=== PATIENT | male | born 1980 | race Caucasian/White ===

== ENCOUNTER 2023-05-10 13:50 | Emergency (ER) | payer OTHER, SELFPAY ==
[2023-05-10] VITALS (9 sets, daily range): BP systolic 140–158; BP diastolic 98–108; PULSE 51–81; RESP 10–24; TEMP 36.7–37; O2SAT 98–100
--- NOTE | ~2023-05-10 | CT_ITS ---
EXAMINATION: CT abdomen pelvis wo con DATE: 05/10/2023 15:21 INDICATION: Epigastric pain TECHNIQUE: Computed tomography (CT) of the abdomen and pelvis was performed without intravenous contr ast. The dose-length product (DLP) was 623.28 mGy-cm. Automated exposure control and iterative recons truction technique were employed. COMPARISON: None FINDINGS: The lung bases are clear. The heart size is normal. The liver, spleen, pancreas, gallbladde r, and adrenal glands are normal. The kidneys are unremarkable. No pathologically enlarged abdominal or pelvic lymph nodes are identified. No free intraperitoneal gas or evidence of bowel obstruction. T he appendix is normal. Colonic diverticulosis is present without evidence of diverticulitis. There is a fat-containing umbilical hernia. There is mild lumbar spondylosis. IMPRESSION: 1. No CT correlate for the patient's symptoms. Reviewed, dictated and finalized at location L.
--- NOTE | ~2023-05-10 | XR_ITS ---
EXAMINATION: XR abdomen obstructive series DATE: 05/10/2023 14:24 INDICATION: Abdominal pain. TECHNIQUE: Upright and supine views of the abdomen on 4 radiographs were obtained. COMPARISON: None. FINDINGS: There are no dilated loops of bowel. There is a small volume of stool in the colon. No free intraperitoneal gas. A necklace is noted. IMPRESSION: 1. Normal bowel gas pattern. Reviewed, dictated and finalized at location A.
[2023-05-10 14:12] LABS: Basophils Absolute Auto 0.05 K/mm3 (0.00-0.10); Basophils Percent Auto 0.6 % (0.0-1.0); Eosinophils Absolute Auto 0.02 K/mm3 (0.02-0.50); Eosinophils Percent Auto 0.2 % (1.0-6.0); Hemoglobin 15.6 g/dL (14.0-18.0); Immature Granulocyte Absolute 0.03 K/mm3 (0.00-0.00); Immature Granulocyte Percent A 0.3 % (0.0-0.0); Lymphocytes Absolute Auto 1.47 K/mm3 (1.10-4.50); Lymphocytes Percent Auto 16.5 % (18.0-42.0); Mean Corpuscular HGB Conc 33.9 g/dL (32.0-36.0); Mean Corpuscular Hemoglobin 32.5 pg (27.0-31.0); Mean Corpuscular Volume 95.8 fL (78.0-102.0); Mean Platelet Volume 9.2 fl (8.7-11.0); Monocytes Absolute Auto 0.82 K/mm3 (0.10-0.90); Monocytes Percent Auto 9.2 % (2.0-11.0); Neutrophils Absolute Auto 6.5 K/mm3 (1.7-7.2); Neutrophils Percent Auto 73.2 % (50.0-70.0); Platelet Count Result 235 K/mm3 (150-420); Red Cell Distribution Width 11.9 % (11.6-14.4); White Blood Count 8.9 K/mm3 (4.8-10.8)
--- NOTE | 2023-05-10 14:16 | ED.FALL ---
HPI - Fall General Chief Complaint: Abdominal Pain Stated Complaint: chest discomfort/acid reflux Time Seen by Provider: 05/10/23 14:00 Source: patient Mode of arrival: ambulatory Limitations: no limitations History of Present Illness HPI Narrative: patient is a 42-year-old male with abdominal pain. He has increased his beer and alcohol intake over the past couple days with labor day weekend. He has had pancreatitis in the past. His pain is upper abdomen. Pain is epigastric. It does not radiate. It is sharp with 6/10 pain. It has no associated symptoms. Nothing makes it better or worse. Related Data Allergies Allergy/AdvReac Type Severity Reaction Status Date / Time No Known Allergies Allergy Mild Verified 05/10/23 13:55 Review of Systems Review of Systems: All systems reviewed & are unremarkable except as noted in HPI and below Constitutional: Constitutional: Reports no additional constitutional complaints Eyes: Eyes: Reports no additional eye complaints ENT: Reports system reviewed and no additional complaints, except as documented Cardiovascular: Cardiovascular: Reports no additional cardiovascular complaints Respiratory: Respiratory: Reports no additional respiratory complaints Gastrointestinal: Gastrointestinal: Reports no additional gastrointestinal complaints Genitourinary: Genitourinary: Reports no additional male genitourinary complaints Musculoskeletal: Musculoskeletal: Reports no additional musculoskeletal complaints Integumentary/Breasts: Skin/Breast: Reports system reviewed and no additional complaints, except as docu Neurologic: Reports system reviewed and no additional complaints, except as documented Psychiatric: Psychiatric: Reports no additional psychiatric complaints Endocrine: Endocrine: Reports no additional endocrine complaints Hematologic/Lymphatic: Hematologic/Lymphatic: Reports no additional hematologic/lymphatic complaints Allergic/Immunologic: Allergic/Immunologic: Reports no additional allergic/immunologic complaints Exam Const: General: healthy appearing, no acute distress and alert Nutritional Appearance: well nourished Orientation/consciousness: patient oriented x3 Limitations: no limitations Neck: Neck: normal visual inspection Chest: Chest palpation & inspection: normal inspection of the chest Resp: Effort & Inspection: normal respiratory effort Auscultation: clear to auscultation bilaterally Cardio: Rate: regular rate Rhythm: regular rhythm Heart sounds: no murmurs GI: Inspection: non-distended GI Palp: Yes Soft to palpation, Yes Tenderness to palpation present (GI) ( Epigastric), No Guarding due to palpation present (GI), No Rigid due to palpation and No Hernia present Auscultation: normal bowel sounds : General: Yes bladder normal to palpation Back/Spine/Pelvis: Back: no CVA tenderness Skin: General skin exam: normal color Rashes: no rashes Wounds: no wounds Neuro: General: patient oriented x3 Cranial nerves: Yes Nystagmus not present Speech: normal speech Gait exam (Neuro): Normal gait present Extrem: General: normal to inspection Psych: Mental Status: mental status grossly normal Affect: normal affect Attitude: cooperative Course Vital Signs Vital signs: Vital Signs Oxygen Delivery Room Air 05/10/23 13:50 Temperature 37.0 C 05/10/23 13:51 Pulse Rate 51 L 05/10/23 14:47 Respiratory Rate 10 L 05/10/23 14:47 Blood Pressure 154/100 H 05/10/23 14:47 Pulse Oximetry 100 05/10/23 14:47 Oxygen Delivery Room Air 05/10/23 13:51 MDM - Fall Lab Data Attestation: I reviewed the patient's lab results. 05/10/23 14:06 05/10/23 14:06 Labs: Lab Results 05/10/23 Range/Units 14:06 WBC 8.9 (4.8-10.8) K/mm3 RBC 4.80 (4.70-6.10) M/mm3 Hgb 15.6 (14.0-18.0) g/dL Hct 46.0 (40.0-54.0) % MCV 95.8 (78.0-102.0) fL MCH 32.5 H (27.0-31.0) pg MCHC 33.9 (32.0-36.0) g
--- NOTE | 2023-05-10 14:21 | ECG_ITS ---
Measurements Intervals [place] Rate: 56 P: 56 DC: 151 QRS: 55 QRSD: 101 T: 67 QT: 420 QTc: 406 Interpretive Statements SINUS BRADYCARDIA BORDERLINE ECG NO PREVIOUS ECG AVAILABLE FOR COMPARISON Electronically Signed On 05-10-2023 15:14:23 CDT by Harlan Dia D.O.
[2023-05-10 14:26] LABS: Partial Thromboplastin Time 29.5 SEC (23.90-30.70); Prothrombin Time 10.7 Seconds (9.50-12.10)
[2023-05-10] MEDS: SODIUM CHLORIDE 0.9% IV 1,000 ML 999 ML IV CONT (14:28)
[2023-05-10 14:39] LABS: Alanine Aminotransferase 42 U/L (16-63); Albumin Level 3.9 g/dL (3.4-5.0); Alkaline Phosphatase 68 U/L (46-116); Anion Gap 9 mmol/L (8-16); Aspartate Amino Transferase 43 U/L (15-37); Blood Urea Nitrogen 8 mg/dL (7-18); Calcium 9.9 mg/dL (8.5-10.1); Carbon Dioxide 27 mmol/L (21-32); Chloride 103 mmol/L (98-108); Estimated CRCL calculation 102 ml/min; Estimated Glomerular Filt Rate > 60; Glucose 115 mg/dL (70-99); Lipase 44 U/L (16-77); Osmolality Calculated 287 mOsm/kg (285-295); Potassium 3.7 mmol/L (3.5-5.1); Sodium 139 mmol/L (136-145); Total Protein 7.8 g/dL (6.4-8.2)
[2023-05-10 14:40] LABS: Troponin I 8.7 ng/L (0.00-60.4)
--- NOTE | 2023-05-10 14:55 | PC.NURSE ---
HAS ARRIVED AT BEDSIDE. PT IS NOW REQUESTING PAIN MEDICATION. ERP IS NOTIFIED AT THIS TIME. WILL CONTINUE TO MONITOR.
[2023-05-10] MEDS: MORPHINE SULFATE (*CRX) 4 MG/ML INJ IV PUSH (15:02)
[2023-05-10] MEDS: MAG HYDROX/ALUMINUM HYD/SIMETH 30 ML, PHENobarb/HYOSCY/ATROPINE/SCOP 32.4 MG, LIDOCAINE... PO (15:57)
== END 2023-05-10 16:10 | disposition home or self-care (01) ==
PROVIDERS: Emergency Provider Emergency Medicine; PCP Internal Medicine
DX: K29.70 Gastritis, unspecified, without bleeding (principal)
CPT/HCPCS: 36415; 74019; 74176; 80053; 83690; 84484; 85025; 85610; 85730; 93005; 96361; 96374; 99284; A9270; J2270; J7030

== ENCOUNTER 2024-02-25 07:50 | Outpatient (CLI) | payer OTHER, SELFPAY ==
[2024-02-25 09:09] LABS: Basophils Absolute Auto 0.05 K/mm3 (0.00-0.10); Basophils Percent Auto 0.9 % (0.0-1.0); Eosinophils Absolute Auto 0.03 K/mm3 (0.02-0.50); Eosinophils Percent Auto 0.5 % (1.0-6.0); Hematocrit 43.3 % (40.0-54.0); Hemoglobin 14.3 g/dL (14.0-18.0); Immature Granulocyte Absolute 0.01 K/mm3 (0.00-0.00); Immature Granulocyte Percent A 0.2 % (0.0-0.0); Lymphocytes Absolute Auto 3.46 K/mm3 (1.10-4.50); Mean Corpuscular Hemoglobin 31.4 pg (27.0-31.0); Mean Corpuscular Volume 95.2 fL (78.0-102.0); Mean Platelet Volume 9.8 fl (8.7-11.0); Monocytes Absolute Auto 0.38 K/mm3 (0.10-0.90); Monocytes Percent Auto 6.6 % (2.0-11.0); Neutrophils Absolute Auto 1.84 K/mm3 (1.70-7.20); Neutrophils Percent Auto 31.8 % (50.0-70.0); Platelet Count Result 162 K/mm3 (150-420); Red Blood Count 4.55 M/mm3 (4.70-6.10); Red Cell Distribution Width 12.7 % (11.6-14.4); White Blood Count 5.8 K/mm3 (4.8-10.8)
[2024-02-25 09:42] LABS: Alanine Aminotransferase 87 U/L (16-63); Albumin Level 3.4 g/dL (3.4-5.0); Alkaline Phosphatase 57 U/L (46-116); Anion Gap 9 mmol/L (4-12); Aspartate Amino Transferase 87 U/L (15-37); Bilirubin,Total 0.7 mg/dL (0.00-1.00); Blood Urea Nitrogen 6 mg/dL (7-18); Calcium 8.9 mg/dL (8.5-10.1); Carbon Dioxide 26 mmol/L (21-32); Chloride 103 mmol/L (98-108); Cholesterol 206 mg/dL (0-200); Creatine Kinase 85 U/L (39-308); Estimated Glomerular Filt Rate > 60; Free T3 3.91 pg/mL (2.18-3.98); Free T4 Free Thyroxine 1.01 ng/dL (0.76-1.46); Glucose 110 mg/dL (70-99); HDL Direct 73 mg/dL (40-60); LDL Cholesterol Calculated 94 mg/dL (<130); Magnesium 1.9 mg/dL (1.8-2.4); Osmolality Calculated 284 mOsm/kg (285-295); Phosphorus 2.5 mg/dL (2.6-4.7); Potassium 3.8 mmol/L (3.5-5.1); Sodium 138 mmol/L (136-145); Total Protein 7.5 g/dL (6.4-8.2); Triglycerides 193 mg/dL (0-150)
[2024-02-25 10:19] LABS: CRP < 0.5 mg/dL (0.0-0.9)
[2024-02-29 06:28] LABS: Hepatitis B Surface Antigen NON-REACTIVE (NON-REACTIVE); Hepatitis C Virus Antibody REACTIVE (NON-REACTIVE)
[2024-02-29 06:53] LABS: Hepatitis A Antibody IgM NON-REACTIVE (NON-REACTIVE); Hepatitis B Core Antibody NON-REACTIVE (NON-REACTIVE)
[2024-03-01 15:23] LABS: Hepatitis C Additional Testing YES
== END 2024-02-25 07:51 | disposition home or self-care (01) ==
PROVIDERS: PCP Internal Medicine; Visit Provider Internal Medicine
DX: Z00.00 Encounter for general adult medical examination without abnormal findings (principal); R53.83 Other fatigue; R25.2 Cramp and spasm; R94.5 Abnormal results of liver function studies
CPT/HCPCS: 36415; 80053; 80061; 80074; 82550; 83516; 83735; 84100; 84439; 84443; 84481; 85025; 86038; 86140; 86376; 86381; 87522

== ENCOUNTER 2024-03-01 12:39 | Outpatient (CLI) | payer OTHER, SELFPAY ==
[2024-03-03 14:38] LABS: Hepatitis C RNA, Quant PCR <15 NOT DETECTED IU/mL (NOT DETECTED)
== END 2024-03-01 12:40 | disposition home or self-care (01) ==
LOC: CHSLAB 12:40
PROVIDERS: PCP Internal Medicine; Visit Provider Internal Medicine
DX: B19.20 Unspecified viral hepatitis C without hepatic coma (principal)
CPT/HCPCS: 36415; 87522

== ENCOUNTER 2024-03-06 08:16 | Outpatient (CLI) | payer OTHER, SELFPAY ==
--- NOTE | ~2024-03-06 | US_ITS ---
EXAMINATION: US right upper quadrant DATE: 03/06/2024 08:35 INDICATION: Positive hepatitis C antibody TECHNIQUE: Multiple grayscale and Doppler ultrasound images of the abdomen were obtained. COMPARISON: None FINDINGS: The pancreatic head and body are normal in appearance. The pancreatic tail is not visualized. The ga llbladder is normal in appearance. There is no cholelithiasis. The 4-5common bile duct measures mm, which is normal. Liver has normal echogenicity and contour, with a smooth surface. No liver lesion id entified. No intrahepatic biliary duct dilation suspected. Portal venous flow was seen in the hepatop etal, normal direction and has normal Doppler waveform. Presents proximal inferior vena cava is maine l. Visualized portion of the right kidney demonstrates normal echogenicity with no hydronephrosis. So nographic Vázquez sign was reported as negative by the pathology tech. IMPRESSION: 1. Normal right upper quadrant ultrasound. Reviewed, dictated and finalized at location B.
== END 2024-03-06 08:17 | disposition home or self-care (01) ==
LOC: CHSIMG 08:19
PROVIDERS: PCP Internal Medicine; Visit Provider Internal Medicine
DX: B19.20 Unspecified viral hepatitis C without hepatic coma (principal)
CPT/HCPCS: 76705

== ENCOUNTER 2024-08-13 08:12 | Outpatient (CLI) | payer OTHER, SELFPAY ==
[2024-08-13 09:57] LABS: Alanine Aminotransferase 47 U/L (16-63); Albumin Level 3.2 g/dL (3.4-5.0); Alkaline Phosphatase 106 U/L (46-116); Anion Gap 7 mmol/L (4-12); Aspartate Amino Transferase 59 U/L (15-37); Bilirubin,Total 0.6 mg/dL (0.00-1.00); Blood Urea Nitrogen 10 mg/dL (7-18); Calcium 9.3 mg/dL (8.5-10.1); Carbon Dioxide 29 mmol/L (21-32); Chloride 101 mmol/L (98-108); Estimated Glomerular Filt Rate > 60; Ferritin > 1000 ng/mL (26-388); Glucose 104 mg/dL (70-99); Osmolality Calculated 283 mOsm/kg (285-295); Potassium 4.5 mmol/L (3.5-5.1); Sodium 137 mmol/L (136-145); Total Protein 6.9 g/dL (6.4-8.2)
== END 2024-08-13 08:13 | disposition home or self-care (01) ==
PROVIDERS: PCP Internal Medicine; Visit Provider Internal Medicine
DX: R94.5 Abnormal results of liver function studies (principal)
CPT/HCPCS: 36415; 80053; 82390; 82728

== ENCOUNTER 2024-08-15 10:49 | Outpatient (CLI) | payer OTHER, SELFPAY ==
--- NOTE | ~2024-08-15 | XR_ITS ---
Lumbosacral Spine: AP and lateral views Clinical History: Pain Findings: The normal lordotic curve is maintained. The vertebral bodies and posterior elements are i ntact. The intervertebral disc spaces are preserved. There are mild facet joint degenerative changes . The sacroiliac joints are normally outlined. Impression: Mild facet joint arthropathy. Reviewed, dictated and finalized at location . RACTIVE PROJECT MANAGER Impression: Mild facet joint arthropathy.
--- NOTE | ~2024-08-15 | US_ITS ---
EXAMINATION: US scrotum doppler DATE: 08/15/2024 11:15 INDICATION: Right testicular pain. TECHNIQUE: Grayscale and Doppler ultrasound images of the testes were obtained. COMPARISON: None. FINDINGS: The right testis measures 3.0 x 3.0 x 2.0 cm. The left testis measures 4.0 x 2.0 x 2.2 cm. There is normal vascular flow to both testes. The right epididymis is normal with normal vascular colten w. The left epididymis is normal with normal vascular flow. There is no varicocele or hydrocele. IMPRESSION: 1. Normal testes. Reviewed, dictated and finalized at location A. R BLENDER HELPER IMPRESSION: 1. Normal testes.
[2024-08-15 11:27] LABS: Add Urine Microscopic? NO; Appearance Urine Clear (Clear); Bilirubin Urine Negative (Negative); Blood Urine Negative (Negative); Color Urine Light Yellow (Yellow); Glucose Urine UA Negative (Negative); Ketones Urine Negative (Negative); Leukocyte Esterase Ur Negative (Negative); Nitrate Urine Negative (Negative); Protein Urine Negative (Negative); Specific Grav Ur 1.025 (1.010-1.020); Urobilinogen Urine 0.2 mg/dL (0.2-1.0)
== END 2024-08-15 10:50 | disposition home or self-care (01) ==
LOC: CHSIMG 10:52
PROVIDERS: PCP Internal Medicine; Visit Provider Internal Medicine
DX: M54.50 Low back pain, unspecified (principal); N50.811 Right testicular pain; M12.88 Other specific arthropathies, not elsewhere classified, other specified site
CPT/HCPCS: 72100; 76870; 81003; 93976

== ENCOUNTER 2024-08-16 10:46 | Outpatient (CLI) | payer OTHER, SELFPAY ==
[2024-08-16 11:00] LABS: Basophils Percent Auto 1.1 % (0.0-1.0); Eosinophils Absolute Auto 0.01 K/mm3 (0.02-0.50); Eosinophils Percent Auto 0.1 % (1.0-6.0); Hematocrit 42.8 % (40.0-54.0); Hemoglobin 14.4 g/dL (14.0-18.0); Immature Granulocyte Absolute 0.04 K/mm3 (0.00-0.00); Immature Granulocyte Percent A 0.4 % (0.0-0.0); Lymphocytes Absolute Auto 2.54 K/mm3 (1.10-4.50); Lymphocytes Percent Auto 27.5 % (18.0-42.0); Mean Corpuscular HGB Conc 33.6 g/dL (32-36); Mean Corpuscular Hemoglobin 32.4 pg (27.0-31.0); Mean Corpuscular Volume 96.4 fL (78.0-102.0); Mean Platelet Volume 8.7 fl (8.7-11.0); Monocytes Percent Auto 5.4 % (2.0-11.0); Neutrophils Absolute Auto 6.04 K/mm3 (1.70-7.20); Neutrophils Percent Auto 65.5 % (50.0-70.0); Platelet Count Result 414 K/mm3 (150-420); Red Blood Count 4.44 M/mm3 (4.70-6.10); Red Cell Distribution Width 12.6 % (11.6-14.4); White Blood Count 9.2 K/mm3 (4.8-10.8)
[2024-08-16 12:20] LABS: Erythrocyte Sedimentation Rate 24 mm/hr (0-15)
[2024-08-16 12:39] LABS: CRP < 0.1 mg/dL (0.0-0.9)
== END 2024-08-16 10:47 | disposition home or self-care (01) ==
LOC: CHSLAB 10:47
PROVIDERS: PCP Internal Medicine; Visit Provider Internal Medicine
DX: R79.89 Other specified abnormal findings of blood chemistry (principal); R74.01 Elevation of levels of liver transaminase levels
CPT/HCPCS: 36415; 81256; 85025; 85652; 86140

== ENCOUNTER 2024-12-22 10:07 | Inpatient (IN) | payer OTHER, SELFPAY ==
[2024-12-22] VITALS (16 sets, daily range): BP systolic 139–168; BP diastolic 80–102; PULSE 48–69; RESP 14–24; TEMP 36.4–37.1; O2SAT 97–100; BMI 28.1
--- NOTE | ~2024-12-22 | CT_ITS ---
EXAMINATION: CT abdomen pelvis w con DATE: 12/22/2024 11:30 INDICATION: Abdominal pain TECHNIQUE: Computed tomography (CT) of the abdomen and pelvis was performed with 100 mL Omnipaque-350 intravenous contrast. Automated exposure control and iterative reconstruction technique were employe d. The dose-length product was 486.19 mGy-cm. COMPARISON: 05/10/2023 FINDINGS: Lung bases are clear. Heart size is normal. No pericardial or pleural effusion. Small sliding-type hi atal hernia. Focal hepatic steatosis at the ligamentum teres. Gallbladder, spleen, bilateral adrenal glands and kidneys are normal. There is diffuse peripancreatic stranding with small amount of nonlocu lated retroperitoneal fluid tracking caudally from the pancreas along the left and right anterior par arenal spaces. Findings consistent with acute interstitial pancreatitis. No loculated peripancreatic fluid collections. Images hepatic parenchymal enhancement with no evident necrosis or hemorrhage. The re is mild colonic diverticulosis with a sigmoid predominance. There is no adjacent inflammatory viera ge to suggest diverticulitis. Small bowel and appendix are normal. Bladder is normal. No free intrap eritoneal gas or fluid. Very small fat-containing right inguinal hernia. No pathologically enlarged a bdominal or pelvic lymphadenopathy. Mild lumbar and lower thoracic spondylosis. IMPRESSION: 1. Radiographic uncomplicated acute interstitial pancreatitis. 2. Small sliding-type hiatal hernia. 3. Mild sigmoid diverticulosis. Reviewed, dictated and finalized at location A.
--- OUTSIDE RECORDS SUMMARY | 2024-12-22 10:09 | XMS_ITS | Clinical Summary ---
Author Organization [facility] Address [address] [place] [id number] Care Team Providers Care Pelt Dropper Name Role Phone Unavailable Primary Care Provider Unavailabl e Social History Tobacco Use Types Packs/Day Years Used Date Smoking Tobacco: Never Assessed Sex and Gender Information Value Date Recorded Sex Assigned at Not on file Legal Sex Male 7:27 PM CDT Gender Identity Not on file Sexual Orientation Not on file Plan of Treatment Health Maintenance Due Date Last Done Comments Annual Physical 1984 Hepatitis C 1999 DTaP, Tdap and Td Vaccines ( 1 - Tdap) 2000 Hepatitis B Vaccines (1 of 3 - 19+ 3-dose series) 2000 COVID-19 Vaccine (2023-2 5 season) 2024 HPV Vaccines Aged Out No longer eligi ble based on patient's age to complete this topic Meningococcal B Vaccine Aged Out No l onger eligible based on patient's age to complete this topic Meningococcal Vaccine Aged Out No jazmin clarisse eligible based on patient's age to complete this topic Pneumococcal Vaccine: Pediat rics (0 to 5 Years) and At-Risk Patients (6 to 49 Years) Aged Out No longer eligible b ased on patient's age to complete this topic RSV Immunizations Under 20 Months Aged Out No longer eligible based on patient's age to complete this topic
--- OUTSIDE RECORDS SUMMARY | 2024-12-22 10:09 | XMS_ITS | Encounter Summary ---
Author Organization [facility] Address [address] [place] [id number] Care Team Providers Care Head Miller Name Role Phone Unavailable Primary Care Provider Unavailabl e Encounter Details Date Type Department Care Team (Late st Contact Info) Description 11/19/2017 Abstract [facility] CONVERSION [address] [place] [address] , Generic Conversion, Social History Tobacco Use Types Packs/Day Years Used Date Smoking Tobacco: Never Assessed Sex and Gender Information Value Date Recorded Sex Assigned at Not on file Legal Sex Male 7:27 PM CDT Gender Identity Not on file Sexual Orientation Not on file documented as of this encounter Plan of Treatment Not on file documented as of this encounter Visit Diagnoses Not on filedocumented in this encounter
--- NOTE | 2024-12-22 10:20 | ECG_ITS ---
Test Date: 2024-12-22 10:18:36 Measurements Intervals [place] Rate: 52 P: 32 LA: 153 QRS: 32 QRSD: 100 T: 70 QT: 453 QTc: 421 Interpretive Statements SINUS BRADYCARDIA BORDERLINE ST-T WAVE ABNORMALITY- HIGH LATERAL LEADS BASELINE ARTIFACT- I, II, III, AVR, AVL, AVF BORDERLINE ECG No previous ECG available for comparison Electronically Signed On 12-24-2024 06:23:29 CDT by Harlan Dia D.O.
[2024-12-22 10:29] LABS: Add Urine Microscopic? NO; Appearance Urine Clear (Clear); Bilirubin Urine Negative (Negative); Blood Urine Negative (Negative); Color Urine Yellow (Yellow); Glucose Urine UA Negative (Negative); Ketones Urine Negative (Negative); Leukocyte Esterase Ur Negative LEU/UL (Negative); Nitrate Urine Negative (Negative); Protein Urine Negative (Negative); Specific Grav Ur 1.025 (1.010-1.020); Urobilinogen Urine 0.2 mg/dL (0.2-1.0); pH Urine 5.5 (5.0-8.0)
[2024-12-22] MEDS: SODIUM CHLORIDE 0.9% IV 1,000 ML 999 ML IV CONT (10:33)
[2024-12-22] MEDS: MORPHINE SULFATE (*CRX) 4 MG/ML INJ IV PUSH (10:34)
[2024-12-22] MEDS: PANTOPRAZOLE SODIUM IV 40 MG VIAL IV PUSH (10:34)
[2024-12-22] MEDS: MAG HYDROX/ALUMINUM HYD/SIMETH 30 ML, PHENobarb/HYOSCY/ATROPINE/SCOP 32.4 MG, LIDOCAINE... PO (10:36)
--- NOTE | 2024-12-22 10:36 | ED.ABDPAIN ---
HPI - Abdominal Pain General Chief Complaint: Abdominal Pain Stated Complaint: stomach pain Time Seen by Provider: 12/22/24 10:14 Source: patient Mode of arrival: ambulatory Limitations: no limitations History of Present Illness HPI narrative: this is a 44-year-old male that presents with some abdominal pain epigastric in nature with a bloating sensation with some no radiation of his pain there is no nausea or vomiting no diarrhea constipation no dysuria denies any chest pain or shortness of breath no fever chills. Patient has a history of alcohol use and history of pancreatitis. MD elicited complaint: abdominal pain Onset (ago): hour(s) Pain Consistency: constant Location: epigastric Severity: severe Pain scale (0-10): 9 Quality: aching and fullness Related Data Allergies Allergy/AdvReac Type Severity Reaction Status Date / Time No Known Allergies Allergy Mild Verified 12/22/24 10:12 Review of Systems Review of Systems: All systems reviewed & are unremarkable except as noted in HPI and below PMFSH Past Medical History Medical History Patient denies medical problems Exam Const: General: healthy appearing and no acute distress Nutritional Appearance: well nourished Orientation/consciousness: patient oriented x3 Limitations: no limitations HENMT: Head: normal to inspection Neck: Neck: normal visual inspection, no lymphadenopathy and no meningeal signs Chest: Chest palpation & inspection: normal inspection of the chest Resp: Effort & Inspection: normal respiratory effort Auscultation: clear to auscultation bilaterally Cardio: Rate: regular rate Rhythm: regular rhythm GI: GI Palp: Yes Soft to palpation and Yes Tenderness to palpation present (GI) ( epigastric tenderness with palpation) Urinary Catheter: Urinary Catheter: patent and draining Back/Spine/Pelvis: Back: no CVA tenderness Skin: General skin exam: normal color Rashes: no rashes Neuro: General: patient oriented x3, moves all extremities, no meningeal signs and no focal motor deficits Course Course Emergency Course: as 44-year-old male with some abdominal pain and received 4mg IV morphine and a GI cocktail for abdominal pain relief also received 40mg IV Protonix. Patient has a white count of 8.8, afebrile and his vitals are stable blood pressure 151/93. His lipase level was [address] scan performed shows acute interstitial pancreatitis is uncomplicated. Will admit to hospitalist service. Vital Signs Vital signs: Vital Signs Temperature 36.4 C 12/22/24 10:07 Pulse Rate 62 12/22/24 10:07 Respiratory Rate 18 12/22/24 10:07 Blood Pressure 166/100 H 12/22/24 10:07 Pulse Oximetry 99 12/22/24 10:07 Oxygen Delivery Room Air 12/22/24 10:07 Temperature 36.4 C 12/22/24 10:07 Pulse Rate 54 L 12/22/24 11:30 Respiratory Rate 18 12/22/24 11:30 Blood Pressure 159/96 H 12/22/24 11:16 Pulse Oximetry 100 12/22/24 11:30 Oxygen Delivery Room Air 12/22/24 10:07 MDM - Abdominal Pain Lab Data 12/22/24 10:44 12/22/24 10:44 Labs: Lab Results 12/22/24 12/22/24 12/22/24 Range/Units 10:20 10:44 10:45 WBC 8.8 (4.8-10.8) K/mm3 RBC 4.61 L (4.70-6.10) M/mm3 Hgb 14.7 (14.0-18.0) g/dL Hct 44.8 (40.0-54.0) % MCV 97.2 (78.0-102.0) fL MCH 31.9 H (27.0-31.0) pg MCHC 32.8 (32-36) g/dL RDW 13.4 (11.6-14.4) % Plt Count 283 (150-420) K/mm3 MPV 9.4 (8.7-11.0) fl Immature Gran % (Auto) 0.7 H (0.0-0.0) % Neut % (Auto) 76.1 H (50.0-70.0) % Lymph % (Auto) 17.4 L (18.0-42.0) % [place] % (Auto) 4.9 (2.0-11.0) % Eos % (Auto) 0.2 L (1.0-6.0) % Baso % (Auto) 0.7 (0.0-1.0) % Lymph # (Auto) 1.54 (1.10-4.50) K/mm3 [place] # (Auto) 0.43 (0.10-0.90) K/mm3 Eos # (Auto) 0.02 (0.02-0.50) K/mm3 Baso # (Auto) 0.06 (0.00-0.10) K/mm3 Abs Immat Gran (auto) 0.06 H (0.00-0.00) K/mm3 Absolute Neuts (auto) 6.73 (1.70-7.20) K/mm3 Absolute Nucleated RBC 0.00 (0.00-0.00) K/mm3 Nucleated RBC % 0.0 (0-0.0) % PT 10.8 (9.50-12.1) Seconds INR 1.0 APTT 27.6 (23.9-30.70) Sec Sodium 139 (136-145) mmol/L Potassium 3.7 (3.5-5.1) mmol/L Chloride 102 (98-108) mmol/L Carbon Dioxide 28 (21-32) mmol/L Anion Gap 9 (4-12) mmol/L BUN 10 (7-18) mg/dL Creatinine 1.00 (0.70-1.30) mg/dL Estim Creat Clear Calc 95 ml/min Estimated GFR > 60 (59 - ) Glucose 126 H (70-99) mg/dL Calculated Osmolality 289 (285-295) mOsm/kg Lactic Acid 1.1 (0.4-2.0) mmol/L Calcium 9.4 (8.5-10.1) mg/dL Total Bilirubin 1.2 H (0.00-1.00) mg/dL AST 58 H (15-37) U/L ALT 42 (16-63) U/L Alkaline Phosphatase 99 (46-116) U/L Troponin I 4.2 (0.00-60.4) ng/L Total Protein 7.7 (6.4-8.2) g/dL Albumin 3.7 (3.4-5.0) g/dL Lipase 579 H (16-77) U/L Urine Color Yellow (Yellow) Urine Appearance Clear (Clear) Urine pH 5.5 (5.0-8.0) Ur Specific [place] 1.025 H (1.010-1.020) Urine Protein Negative (Negative) Urine Glucose (UA) Negative (Negative) Urine Ketones Negative (Negative) Ur Blood (Man) Negative (Negative) Urine Nitrate Negative (Negative) Urine Bilirubin Negative (Negative) Urine Urobilinogen 0.2 (0.2-1.0) mg/dL Leukocyte Esterase Rfl Negative (Negative) DEEPTI/UL Imaging Data Radiologist's impression: ITS Impressions Abdomen/Pelvis CT 12/22/24 11:31 IMPRESSION: 1. Radiographic uncomplicated acute interstitial pancreatitis. 2. Small sliding-type hiatal hernia. 3. Mild sigmoid diverticulosis. Critical Care Time Critical Care Time Critical Care Time: No Discharge Plan Discharge Clinical Impression: Pancreatitis Qualifiers: Chronicity: acute Acute pancreatitis complication: no infection or necrosis Patient Disposition: Acute Care Hospital Condition: Guarded Prognosis Patient Language: Italian Prescriptions: No Action sucralfate [Carafate] 1 gram tablet 1 g PO TID PRN (Reason: pain) Qty: 20 0RF Follow-up/Referrals: Simon Weaver MD [Primary Care Provider] - Time of Disposition: 11:43
--- OUTSIDE RECORDS SUMMARY | 2024-12-22 10:48 | XMS_ITS | Clinical Summary ---
Author Organization [facility] Address [address] [place] [address] Care Team Providers Care Solutions Analyst Name Role Phone Unavailable Primary Care Provider [...]
--- OUTSIDE RECORDS SUMMARY | 2024-12-22 10:48 | XMS_ITS | Encounter Summary ---
Author Organization [facility] Address [address] [place] [id number] Care Team Providers Care Portable Grinding Machine Operator Name Role Phone Unavailable Primary Care Provider Unavailabl e Encounter Details Date Type Department Care Team (Late st Contact Info) Description 11/19/2017 Abstract [facility] CONVERSION [address] [place] [address] , Generic Conversion, Social History Tobacco Use [...]
[2024-12-22 10:50] LABS: Basophils Absolute Auto 0.06 K/mm3 (0.00-0.10); Basophils Percent Auto 0.7 % (0.0-1.0); Eosinophils Absolute Auto 0.02 K/mm3 (0.02-0.50); Eosinophils Percent Auto 0.2 % (1.0-6.0); Hematocrit 44.8 % (40.0-54.0); Hemoglobin 14.7 g/dL (14.0-18.0); Immature Granulocyte Absolute 0.06 K/mm3 (0.00-0.00); Immature Granulocyte Percent A 0.7 % (0.0-0.0); Lymphocytes Absolute Auto 1.54 K/mm3 (1.10-4.50); Lymphocytes Percent Auto 17.4 % (18.0-42.0); Mean Corpuscular HGB Conc 32.8 g/dL (32-36); Mean Corpuscular Hemoglobin 31.9 pg (27.0-31.0); Mean Corpuscular Volume 97.2 fL (78.0-102.0); Mean Platelet Volume 9.4 fl (8.7-11.0); Monocytes Absolute Auto 0.43 K/mm3 (0.10-0.90); Monocytes Percent Auto 4.9 % (2.0-11.0); Neutrophils Absolute Auto 6.73 K/mm3 (1.70-7.20); Neutrophils Percent Auto 76.1 % (50.0-70.0); Platelet Count Result 283 K/mm3 (150-420); Red Blood Count 4.61 M/mm3 (4.70-6.10); Red Cell Distribution Width 13.4 % (11.6-14.4); White Blood Count 8.8 K/mm3 (4.8-10.8)
[2024-12-22 11:02] LABS: Partial Thromboplastin Time 27.6 Sec (23.9-30.70); Prothrombin Time 10.8 Seconds (9.50-12.1)
[2024-12-22 11:07] LABS: Lactic Acid Reflex 1.1 mmol/L (0.4-2.0)
[2024-12-22 11:10] LABS: Alanine Aminotransferase 42 U/L (16-63); Albumin Level 3.7 g/dL (3.4-5.0); Alkaline Phosphatase 99 U/L (46-116); Anion Gap 9 mmol/L (4-12); Aspartate Amino Transferase 58 U/L (15-37); Bilirubin,Total 1.2 mg/dL (0.00-1.00); Blood Urea Nitrogen 10 mg/dL (7-18); Calcium 9.4 mg/dL (8.5-10.1); Carbon Dioxide 28 mmol/L (21-32); Chloride 102 mmol/L (98-108); Estimated CRCL calculation 95 ml/min; Estimated Glomerular Filt Rate > 60; Glucose 126 mg/dL (70-99); Lipase 579 U/L (16-77); Osmolality Calculated 289 mOsm/kg (285-295); Potassium 3.7 mmol/L (3.5-5.1); Sodium 139 mmol/L (136-145); Total Protein 7.7 g/dL (6.4-8.2); Troponin I 4.2 ng/L (0.00-60.4)
[2024-12-22] MEDS: MORPHINE SULFATE (*CRX) 2 MG/ML INJ IV PUSH ×3 (13:02→23:23)
[2024-12-22] MEDS: LACTATED RINGERS 1,000 ML 100 ML IV CONT ×2 (13:03→23:58)
[2024-12-22] MEDS: HYDROcodone/acetaminophen (*CRX) 5-325 MG TABLET 1 TAB PO ×2 (14:54→19:36)
--- NOTE | 2024-12-22 15:17 | PC.NURSE ---
Pt admitted to observation status from the ER. Pt is having pain but no nausea. He is A/Ox3. ambulates on his own. [place] is steady . Visiting rules reviewed with pt and nurse call system. Pt verbalized understanding of instructions
--- NOTE | 2024-12-22 17:30 | PC.NURSE ---
Patient blood pressure noted to be elevated. Patient states he does not take anything for hypertension. States his blood pressure is usually fine unless he has been drinking more like he has recently. Will notified JUAN M Cano.
--- NOTE | 2024-12-22 23:43 | PC.NURSE ---
Call made to Rachael Lindsay NP about continuing LR for pt and bp readings. BUILDING MAINTENANCE TECHNICIAN ordered for continuous LR at 100mL/hr and the bp will be addressed in the am. BUILDING MAINTENANCE TECHNICIAN communicated to this RN to contact the BUILDING MAINTENANCE TECHNICIAN if the pt's bp readings exceed 210/110. This RN repeated order back to BUILDING MAINTENANCE TECHNICIAN and received confirmation.
[2024-12-23 06:29] LABS: Basophils Absolute Auto 0.04 K/mm3 (0.00-0.10); Basophils Percent Auto 0.3 % (0.0-1.0); Eosinophils Absolute Auto 0.08 K/mm3 (0.02-0.50); Eosinophils Percent Auto 0.7 % (1.0-6.0); Hematocrit 42.3 % (40.0-54.0); Hemoglobin 14.1 g/dL (14.0-18.0); Immature Granulocyte Absolute 0.05 K/mm3 (0.00-0.00); Immature Granulocyte Percent A 0.4 % (0.0-0.0); Lymphocytes Absolute Auto 2.01 K/mm3 (1.10-4.50); Lymphocytes Percent Auto 17.4 % (18.0-42.0); Mean Corpuscular HGB Conc 33.3 g/dL (32-36); Mean Corpuscular Hemoglobin 32.3 pg (27.0-31.0); Mean Corpuscular Volume 96.8 fL (78.0-102.0); Mean Platelet Volume 9.5 fl (8.7-11.0); Monocytes Absolute Auto 0.64 K/mm3 (0.10-0.90); Monocytes Percent Auto 5.6 % (2.0-11.0); Neutrophils Absolute Auto 8.71 K/mm3 (1.70-7.20); Neutrophils Percent Auto 75.6 % (50.0-70.0); Platelet Count Result 246 K/mm3 (150-420); Red Blood Count 4.37 M/mm3 (4.70-6.10); Red Cell Distribution Width 13.4 % (11.6-14.4); White Blood Count 11.5 K/mm3 (4.8-10.8)
[2024-12-23 06:40] VITALS: BP 153/112
[2024-12-23 06:44] LABS: Alanine Aminotransferase 34 U/L (16-63); Albumin Level 3.2 g/dL (3.4-5.0); Alkaline Phosphatase 80 U/L (46-116); Anion Gap 9 mmol/L (4-12); Aspartate Amino Transferase 42 U/L (15-37); Bilirubin,Total 1.2 mg/dL (0.00-1.00); Blood Urea Nitrogen 4 mg/dL (7-18); Calcium 9.2 mg/dL (8.5-10.1); Carbon Dioxide 28 mmol/L (21-32); Chloride 101 mmol/L (98-108); Estimated CRCL calculation 107 ml/min; Estimated Glomerular Filt Rate > 60; Glucose 100 mg/dL (70-99); Magnesium 1.6 mg/dL (1.8-2.4); Osmolality Calculated 282 mOsm/kg (285-295); Potassium 3.5 mmol/L (3.5-5.1); Sodium 138 mmol/L (136-145); Total Protein 6.9 g/dL (6.4-8.2)
[2024-12-23 07:04] LABS: Lipase 952 U/L (16-77)
[2024-12-23 08:00] VITALS: BP 152/88; PULSE 68; RESP 12; TEMP 36.6; O2SAT 96
--- NOTE | 2024-12-23 09:06 | P.HP_ITS ---
H&P: HPI History of Present Illness Date/Time: 12/23/24 09:06 Chief Complaint: abdominal pain Narrative: This is a 44-year-old male with a significant past medical history of alcohol- induced pancreatitis, hepatitis-C which was fully treated, hiatal hernia, diverticulosis, former smoker, marijuana abuse who presented to the hospital with complaints of abdominal pain and bloating. Workup in the hospital incl uded an abdomen / pelvis CT which shown uncomplicated acute interstitial pancreatitis, small sliding type hiatal hernia, mild sigmoid diverticulosis. He was noted to have high blood pressure readings ranging 166/100 to 152/91. Review of the EMR showed that he had high blood pressure readings the last time he was here. He is not currently on any medications for hypertension. Initial labs showed a normal white blood count of 8.8, blood sugar ranging 100-126, lactic acid 1.1, total bili 1.2, AST 58, troponin 4.21, lipase 579. UA was obtained and showed a urine specific gravity of 1.025, otherwise negative. Blood cultures were obtained and pending. EKG showed sinus bradycardia with a rate of 56, QTC 406. Patient was given 1 L IV fluid, morphine, GI cocktail, Protonix while in the ED. Review of Systems Review of Systems: All systems reviewed & are unremarkable except as noted in HPI and below PMFSH Past Medical History Medical History Hepatitis C patient has had full treatment Hiatal hernia Diverticulosis Former smoker Marijuana abuse Alcohol abuse Alcohol-induced pancreatitis Patient denies medical problems Social History Social History Smoking packs per day: 1 Smoking cigarettes per day: 20.0 Years smoked: 15 Smoking pack-years: 15.00 Smoking status: Former smoker Tobacco type: e-cigarettes/vaping Smoking end date: 10/06/24 Alcohol intake: current Drinks per week: 10 Substance use: current Substance use type: marijuana Do You Feel Safe in your Home?: Yes Lack of Transportation: No Lack of Food: Never True Current Housing: I Have Housing Concerned About Future Housing: No Difficulty Paying Gas/Electric Bills: No Difficulty Paying for Meds: No Currently Unemployed: No Education: High School Diploma/GED Difficulty w/ Childcare or Family Care: No Spiritual care concerns: No Meds Home Medications and Allergies Home Medications ?Medication ?Instructions ?Recorded ?Confirmed ?Type sucralfate 1 gram tablet (Carafate) 1 g PO TID PRN pain #20 tabs 05/10/23 12/22/24 Rx lisinopril 5 mg tablet 5 mg PO QAM #30 tabs 12/23/24 Rx Allergies Allergy/AdvReac Type Severity Reaction Status Date / Time No Known Allergies Allergy Mild Verified 12/22/24 10:12 Vital Signs Vital Signs - 24 hr 12/22/24 10:07 12/22/24 10:39 12/22/24 10:40 Temperature 97.6 F Pulse Rate 62 68 57 L Respiratory Rate 18 18 18 Blood Pressure 166/100 H 149/89 H 151/93 H Pulse Oximetry 99 99 100 Oxygen Delivery Room Air 12/22/24 10:41 12/22/24 10:45 12/22/24 10:46 Temperature Pulse Rate 55 L 57 L 51 L Respiratory Rate 24 H 18 22 H Blood Pressure 139/102 H Pulse Oximetry 100 99 98 Oxygen Delivery 12/22/24 11:00 12/22/24 11:01 12/22/24 11:02 Temperature Pulse Rate 48 L 48 L 69 Respiratory Rate 18 18 20 Blood Pressure 151/91 H 152/91 H Pulse Oximetry 99 99 98 Oxygen Delivery 12/22/24 11:15 12/22/24 11:16 12/22/24 11:30 Temperature Pulse Rate 50 L 54 L Respiratory Rate 19 18 Blood Pressure 159/96 H Pulse Oximetry 100 100 Oxygen Delivery 12/22/24 11:45 12/22/24 14:00 12/22/24 17:30 Temperature 97.6 F 98.1 F Pulse Rate 52 L 62 53 L Respiratory Rate 19 14 16 Blood Pressure 158/80 H 168/101 H Pulse Oximetry 100 98 97 Oxygen Delivery Room Air Room Air 12/22/24 23:46 12/23/24 06:40 Temperature 98.7 F Pulse Rate 53 L Respiratory Rate 18 Blood Pressure 162/102 H 153/112 H Pulse Oximetry 98 Oxygen Delivery Room Air Exam Narrative: General: In no acute distress, well nourished Head: atraumatic, no encephalopathy Eyes: PERRLA, sclera clear ENT: moist mucous membranes, nasal passages clear Neck: supple, no JVD, no adenopathy, trachea midline Cardiac: Normal S1 and S2. RRR, No murmur, gallops or friction rubs, peripheral pulses intact. Respiratory: Lungs clear to auscultation, no adventitious lung sounds, currently on room air Gastrointestinal: soft, non-distended, non-tender, normoactive bowel sounds. : voiding without difficulty. Extremities: moves all extremities well, no edema, good ROM, strength 5/5 Skin: clean, dry, intact. No wounds or lesions. Neuro: Alert and oriented x4, cranial nerves intact, no neuro deficits. Psych: normal mood, normal affect, interactive H&P: Results Labs Labs: Short CBC 12/22/24 12/23/24 Range/Units 10:44 05:37 WBC 8.8 11.5 H (4.8-10.8) K/mm3 Hgb 14.7 14.1 (14.0-18.0) g/dL Hct 44.8 42.3 (40.0-54.0) % Plt Count 283 246 (150-420) K/mm3 BMP 12/22/24 12/23/24 10:44 05:37 Sodium 139 138 Potassium 3.7 3.5 Chloride 102 101 Carbon Dioxide 28 28 BUN 10 4 L Creatinine 1.00 0.80 Glucose 126 H 100 H Calcium 9.4 9.2 Cardiac Enzymes 12/22/24 Range/Units 10:44 Troponin I 4.2 (0.00-60.4) ng/L Liver Function 12/22/24 12/23/24 Range/Units 10:44 05:37 Total Bilirubin 1.2 H 1.2 H (0.00-1.00) mg/dL AST 58 H 42 H (15-37) U/L ALT 42 34 (16-63) U/L Alkaline Phosphatase 99 80 (46-116) U/L Albumin 3.7 3.2 L (3.4-5.0) g/dL Urine 12/22/24 Range/Units 10:20 Urine Color Yellow (Yellow) Urine Appearance Clear (Clear) Urine pH 5.5 (5.0-8.0) Ur Specific Lewis 1.025 H (1.010-1.020) Urine Protein Negative (Negative) Urine Glucose (UA) Negative (Negative) Imaging CT of the abdomen and pelvis: Radiologist's impression: EXAMINATION: CT abdomen pelvis w con DATE: 12/22/2024 11:30 INDICATION: Abdominal pain TECHNIQUE: Computed tomography (CT) of the abdomen and pelvis was performed with 100 mL Omnipaque-350 intravenous contrast. Automated exposure control and i terative reconstruction technique were employed. The dose-length product was 486.19 mGy-cm. COMPARISON: 05/10/2023 FINDINGS: Lung bases are clear. Heart size is normal. No pericardial or pleural effusion. Small sliding-type hiatal hernia. Focal hepatic steatosis at the ligamentum teres. Gallbladder, spleen, bilateral adrenal glands and kidneys are normal. There is diffuse peripancreatic stranding with small amount of nonloculated retroperitoneal fluid tracking caudally from the pancreas along the left and right anterior pararenal spaces. Findings consistent with acute interstitial pancreatitis. No loculated peripancreatic fluid collections. Images hepatic parenchymal enhancement with no evident necrosis or hemorrhage. There is mild colonic diverticulosis with a sigmoid predominance. There is no adjacent inflammatory change to suggest diverticulitis. Small bowel and appendix are normal. Bladder is normal. No free intraperitoneal gas or fluid. Very small fat- containing right inguinal hernia. No pathologically enlarged abdominal or pelvic lymphadenopathy. Mild lumbar and lower thoracic spondylosis. IMPRESSION: 1. Radiographic uncomplicated acute interstitial pancreatitis. 2. Small sliding-type hiatal hernia. 3. Mild sigmoid diverticulosis. Reviewed, dictated and finalized at location A. Assessment and Plan Assessment and plan (1) Alcohol-induced pancreatitis: Code(s): K85.20 - Alcohol induced acute pancreatitis without necrosis or infection Status: Acute Assessment and Plan: * CT of the abdomen and pelvis shown uncomplicated acute interstitial pancreatitis, small sliding type hiatal hernia, mild sigmoid diverticulosis * initial lipase 579 now up to 952 * white blood cell count elevated to 11.5, likely inflammatory response * continue IV fluids * advance diet as tolerated to a regular diet * continue pain control * continue nausea control (2) Alcohol abuse: Code(s): F10.10 - Alcohol abuse, uncomplicated Status: Acute Assessment and Plan: * patient reports that he drinks at least 5 beers and shots of hard liquor most days of the week (3) Total bilirubin, elevated: Code(s): R17 - Unspecified jaundice Status: Acute Assessment and Plan: likely secondary to alcohol abuse * total bili 1.2 * will check hepatitis panel * CT of the abdomen and pelvis showing focal hepatic steatosis at the ligamentum teres, gallbladder and spleen were normal (4) Elevated liver enzymes: Code(s): R74.8 - Abnormal levels of other serum enzymes Status: Acute Assessment and Plan: * initial AST 58, ALT 42 * likely secondary to alcohol abuse * continue to monitor (5) Hypertension: Code(s): I10 - Essential (primary) hypertension Status: Acute Assessment and Plan: * patient does not take any medications at home for hypertension, likely new diagnosis * will start lisinopril 5 mg daily (6) Hypomagnesemia: Code(s): E83.42 - Hypomagnesemia Status: Acute Assessment and Plan: * magnesium 1.6 * will give 2 g magnesium today Quality VTE Prophylaxis VTE prophylaxis: pharmacologic ordered Hospitalist MIPS Advance Care Plan I have confirmed that the patient's Advanced Care Plan is present, code status is documented, or surrogate decision maker is listed in patient medical record.: Yes Medication Reconciliation I have utilized all available resources to obtain, update and review the patients current medications (includes all prescriptions, OTC, herbals, cannabis, and nutritional supplements).: Yes
[2024-12-23 09:34] LABS: Hemoglobin A1C 5.5 % (<5.7)
[2024-12-23 09:43] LABS: Cholesterol 208 mg/dL (0-200); HDL Direct 93 mg/dL (40-60); LDL Cholesterol Calculated 90 mg/dL (<130); Thyroid Stimulating Hormone 1.92 uIU/mL (0.36-3.74); Triglycerides 127 mg/dL (0-150)
[2024-12-23] MEDS: MAGNESIUM SULF 2 GM/WATER 50ML 2 GM/50 ML BAG IVPB (09:45)
[2024-12-23] MEDS: lisinopriL 5 MG TABLET PO (09:46)
--- NOTE | 2024-12-23 11:35 | P.DS_ITS ---
DS: Admitting Diagnosis Discharge Date 12/23/24 Admitting Diagnosis alcohol-induced pancreatitis alcohol abuse elevated total bilirubin elevated liver enzymes hypertension hypomagnesemia DS: Discharge Diagnosis Discharge Diagnosis (1) Alcohol-induced pancreatitis: Code(s): K85.20 - Alcohol induced acute pancreatitis without necrosis or infection Status: Acute Assessment and Plan: * CT of the abdomen and pelvis shown uncomplicated acute interstitial pancreatitis, small sliding type hiatal hernia, mild sigmoid diverticulosis * initial lipase 579 now up to 952 * white blood cell count elevated to 11.5, likely inflammatory response * continue IV fluids * advance diet as tolerated to a regular diet * continue pain control * continue nausea control (2) Alcohol abuse: Code(s): F10.10 - Alcohol abuse, uncomplicated Status: Acute Assessment and Plan: * patient reports that he drinks at least 5 beers and shots of hard liquor most days of the week (3) Total bilirubin, elevated: Code(s): R17 - Unspecified jaundice Status: Acute Assessment and Plan: likely secondary to alcohol abuse * total bili 1.2 * will check hepatitis panel * CT of the abdomen and pelvis showing focal hepatic steatosis at the ligamentum teres, gallbladder and spleen were normal (4) Elevated liver enzymes: Code(s): R74.8 - Abnormal levels of other serum enzymes Status: Acute Assessment and Plan: * initial AST 58, ALT 42 * likely secondary to alcohol abuse * continue to monitor (5) Hypertension: Code(s): I10 - Essential (primary) hypertension Status: Acute Assessment and Plan: * patient does not take any medications at home for hypertension, likely new diagnosis * will start lisinopril 5 mg daily (6) Hypomagnesemia: Code(s): E83.42 - Hypomagnesemia Status: Acute Assessment and Plan: * magnesium 1.6 * will give 2 g magnesium today DS: Summary Hospital Course Reason for hospitalization: alcohol-induced pancreatitis alcohol abuse elevated total bilirubin elevated liver enzymes hypertension hypomagnesemia Hospital Course: This is a 44-year-old male with a significant past medical history of alcohol- induced pancreatitis, hiatal hernia, diverticulosis, former smoker, marijuana abuse who presented to the hospital with complaints of abdominal pain and bloating. Workup in the hospital included an abdomen / pelvis CT which shown uncomplicated acute interstitial pancreatitis, small sliding type hiatal hernia, mild sigmoid diverticulosis. He was noted to have high blood pressure readings ranging 166/100 to 152/91. Review of the EMR showed that he had high blood pressure readings the last time he was here. He is not currently on any medications for hypertension. Initial labs showed a normal white blood count of 8.8, blood sugar ranging 100-126, lactic acid 1.1, total bili 1.2, AST 58, troponin 4.21, lipase 579. UA was obtained and showed a urine specific gravity of 1.025, otherwise negative. Blood cultures were obtained and pending. EKG showed sinus bradycardia with a rate of 56, QTC 406. Patient was given 1 L IV fluid, morphine, GI cocktail, Protonix while in the ED. patient states that he is feeling better after having IV fluids and pain medications through the night. He denies any nausea, vomiting, diarrhea, abdominal pain, chest pain, shortness a breath. He reported that he drinks 5 beers and shots of hard liquor most days of the week. We did discuss abstaining from alcohol due to his pancreatitis and fatty liver disease. He states he is wanting to quit alcohol and will be seeking help for this. While here he was noted to have high blood pressures ranging 152/91 to 166/100 and he was started on lisinopril 5 mg daily. We discussed keeping track of his blood pressures with a home blood pressure cuff and taking this to his primary care doctor for further adjustment in his blood pressure medication. He was also noted to have low magnesium of 1.6. He was given 2 g of magnesium while here. He will need to get another magnesium level in about 3 days and then follow up with his primary care doctor in 1 week. He is stable for discharge at this time. final diagnosis: alcohol-induced pancreatitis, elevated total bilirubin, transaminitis, uncontrolled hypertension, hypomagnesemia Status at Discharge Cognitive/behavioral status at discharge: Alert oriented x4 Functional status at discharge: independent ambulation Overall status at discharge: patient is progressing back to baseline Time Spent with Patient Time attestation: Total time spent providing and/or coordinating discharge services: Time spent: Greater than 30 minutes Exam Narrative: General: In no acute distress, well nourished Head: atraumatic, no encephalopathy Eyes: PERRLA, sclera clear ENT: moist mucous membranes, nasal passages clear Neck: supple, no JVD, no adenopathy, trachea midline Cardiac: Normal S1 and S2. RRR, No murmur, gallops or friction rubs, peripheral pulses intact. Respiratory: Lungs clear to auscultation, no adventitious lung sounds, currently on room air Gastrointestinal: soft, non-distended, non-tender, normoactive bowel sounds. : voiding without difficulty. Extremities: moves all extremities well, no edema, good ROM, strength 5/5 Skin: clean, dry, intact. No wounds or lesions. Neuro: Alert and oriented x4, cranial nerves intact, no neuro deficits. Psych: normal mood, normal affect, interactive DS: Data Data Completed and Pending Completed studies during hospitalization: CT of the abdomen and pelvis Pending studies at discharge: none Labs on day of discharge: Labs from last 24 hours 12/23/24 12/23/24 05:37 05:36 WBC 11.5 H RBC 4.37 L Hgb 14.1 Hct 42.3 MCV 96.8 MCH 32.3 H MCHC 33.3 RDW 13.4 Plt Count 246 MPV 9.5 Immature Gran % (Auto) 0.4 H Neut % (Auto) 75.6 H Lymph % (Auto) 17.4 L [place] % (Auto) 5.6 Eos % (Auto) 0.7 L Baso % (Auto) 0.3 Lymph # (Auto) 2.01 [place] # (Auto) 0.64 Eos # (Auto) 0.08 Baso # (Auto) 0.04 Abs Immat Gran (auto) 0.05 H Absolute Neuts (auto) 8.71 H Absolute Nucleated RBC 0.00 Nucleated RBC % 0.0 Sodium 138 Potassium 3.5 Chloride 101 Carbon Dioxide 28 Anion Gap 9 BUN 4 L Creatinine 0.80 Estim Creat Clear Calc 107 Estimated GFR > 60 Glucose 100 H Hemoglobin A1c 5.5 Calculated Osmolality 282 L Calcium 9.2 Magnesium 1.6 L Total Bilirubin 1.2 H AST 42 H ALT 34 Alkaline Phosphatase 80 Total Protein 6.9 Albumin 3.2 L Triglycerides 127 Cholesterol 208 H LDL Cholesterol, Calc 90 HDL Direct 93 H Lipase 952 H TSH 1.92 Hepatitis A IgM Ab Pending Hep Bs Antigen Pending Hep B Core IgM Ab Pending Hepatitis C Antibody Pending Preliminary micro results at discharge 12/22/24 10:44 Blood Culture - Preliminary Blood 12/22/24 10:44 Blood Culture - Preliminary Blood Procedures/Treatments: none Discharge Plan Discharge Attending physician on discharge: Matthew Jeffers Discharging Clinician: Rachael Lindsay Anticipated Discharge Date/Time: 12/23/24 11:21 Patient Disposition: Home Activity: as tolerated Diet: as tolerated and regular Discharge Instructions: * You were noted to have high blood pressure readings this admission as well as previous admission. Your blood pressure is ranging 149/89 to 168/101. you were started on lisinopril 5 mg daily. * Please keep track of your blood pressures for the next week. Take your blood pressure at least once a day and keep a record. take your record of blood pressure readings to your primary care doctor for further adjustments in your blood pressure medications. * Follow-up with your primary care doctor in 1 week. Remember to take your blood pressure recordings with you to your appointment. * Continue to advance her diet as tolerated to a regular diet. * Abstain from alcohol as this is the likely cause of your pancreatitis. * a checked your cholesterol and your total cholesterol is mildly elevated at 208, your HDL is 93, your LDL is normal at 90. and exercise into your routine and choose healthy foods * your total bilirubin was elevated at 1.2 along with elevation in your liver enzymes. CT of the abdomen and pelvis shown hepatic steatosis which is fatty liver disease Likely from a combination of poor diet verses alcohol abuse. again abstain from alcohol as this can improve your liver function. * your magnesium was noted to be 1.6 which is low. We gave you 2 g of magnesium while you were here. Recheck your lab in 3-4 days. A copy of your lab results will be sent to your primary care. Patient Instructions: Pancreatitis (DC), Abuse of Alcohol (DC), Transaminitis (GEN) Patient Language: Mosotho Stand Alone Forms: General Discharge Information Follow-up/Referrals: Simon Weaver MD [Primary Care Provider] - 1 week Discharge Medications: New lisinopril 5 mg Tablet 5 mg PO QAM Qty: 30 0RF Discontinued sucralfate [Carafate] 1 gram tablet 1 g PO TID PRN (Reason: pain) Qty: 20 0RF Other Ambulatory Orders: Magnesium (Routine) Timeframe: 3 Days Location: Determined by Patient Ordered By: Rachael Lindsay Date of admission: 12/22/24 13:25 Primary Care Provider: Simon Weaver Admitting Provider: Matthew Jeffers Attending physician on admission: Matthew Jeffers Condition: Improved Quality VTE Prophylaxis VTE prophylaxis: pharmacologic ordered Hospitalist MIPS Heart Failure (Exclusion) Patient has history of Heart Transplant or Left Ventricular Assistive Device?: No IF YES, STOP HERE Heart Failure (Qualifier) Patient has current or prior documentation of LVEF less than or equal to 40%, or mod/servere depressed LVSF?: No IF NO, STOP HERE
--- NOTE | 2024-12-23 12:00 | PC.NURSE ---
Discharge instructions reviewed with pt. All questions answered. Pt ambulated self for discharge.
--- OUTSIDE RECORDS SUMMARY | 2024-12-24 08:04 | XMS_ITS | Clinical Summary ---
Author Organization [facility] Address [address] [place] [id number] Care Team Providers Care Chopper Gun Operator Name Role Phone Unavailable Primary Care [...]
--- OUTSIDE RECORDS SUMMARY | 2024-12-24 08:04 | XMS_ITS | Encounter Summary ---
Author Organization [facility] Address [address] [place] [id number] Care Team Providers Care Communication Center Operator Name Role Phone Unavailable Primary Care Provider Unavailabl e Encounter Details Date Type Department Care Team (Late st Contact Info) Description 11/19/2017 Abstract [facility] CONVERSION [address] [place] [address] , Generic Conversion, Social History Tobacco Use [...]
[2024-12-24 15:29] LABS: Hepatitis B Surface Antigen NON-REACTIVE (NON-REACTIVE)
[2024-12-24 16:38] LABS: Hepatitis C Virus Antibody REACTIVE (NON-REACTIVE)
[2024-12-24 16:49] LABS: Hepatitis A Antibody IgM NON-REACTIVE (NON-REACTIVE); Hepatitis B Core Antibody NON-REACTIVE (NON-REACTIVE)
[2024-12-27 14:33] LABS: Hepatitis C Viral RNA PCR <15 NOT DETECTED IU/mL (NOT DETECTED)
--- NOTE | 2024-12-28 12:47 | PCDIET ---
Called left for Patient instructing to call facility if he had any questions or concerns with his discharge.
== END 2024-12-23 12:00 | disposition home or self-care (01) | DRG 439 ==
LOC: CHSED 11:51 → CHS2ND 12-23 11:30
PROVIDERS: Nurse Practitioner Acute Care; Admitting Provider Internal Medicine; Emergency Provider Emergency Medicine; PCP Internal Medicine; Visit Provider Internal Medicine
DX: K85.20 Alcohol induced acute pancreatitis without necrosis or infection (principal); I10 Essential (primary) hypertension; E83.42 Hypomagnesemia; K44.9 Diaphragmatic hernia without obstruction or gangrene; K57.30 Diverticulosis of large intestine without perforation or abscess without bleeding; R17 Unspecified jaundice; F12.10 Cannabis abuse, uncomplicated; F10.10 Alcohol abuse, uncomplicated; Z87.891 Personal history of nicotine dependence; Z86.19 Personal history of other infectious and parasitic diseases; R74.8 Abnormal levels of other serum enzymes
CPT/HCPCS: 36415; 74177; 80053; 80061; 80074; 81003; 83036; 83605; 83690; 83735; 84443; 84484; 85025; 85610; 85730; 87040; 87522; 93005; 96361; 96374; 96375; 96376; 99285; A9270; G0378; J2270; J2470; J3475; J7030; J7120; Q9967